=== PATIENT | female | born 1975 | race Caucasian/White ===

== ENCOUNTER 2024-10-04 02:54 | Emergency (ER) | payer BC ==
[2024-10-04 04:05] LABS: Albumin 3.2 g/dL (3.4-5.0); Albumin/Globulin Ratio 1.2 (1.1-1.8); Alkaline Phosphatase 96 U/L (45-117); BUN Blood Urea Nitrogen 10 mg/dL (7-18); Bicarbonate 21 mEq/L (21-32); Bilirubin Total 0.6 mg/dL (0.2-1.0); Globulin 2.7 g/dL (2.3-3.5); Glomerular Filtration Rate 98 ml/min (=/>90); Glucose Level 127 mg/dL (74-106); Magnesium 2.1 mg/dL (1.6-2.4); Protein, Total 5.9 g/dL (6.4-8.2); Sodium Level 143 mEq/L (136-145)
[2024-10-04 04:19] LABS: ALT/SGPT < 14 U/L (13-56); AST/SGOT < 10 U/L (15-37)
--- NOTE | 2024-10-04 05:36 | ER ---
Nurse's Notes [facility] Name: Jael Mesa Age: 49 yrs Sex: Female : 1975 Arrival Date: 10/04/2024 Time: 02:54 Bed 2 Private MD: Diagnosis: Accidental overdose of Seroquel Presentation: 10/04 03:02 Chief complaint: Patient states: Patient arrives via EMS with complaints of feeling SOB jr13 and drowsy upon waking up. Patient took 1600mg of Seroquel around 2330. She stated she forgot she took 2 initial pills (800mg) of seroquel then took another 800mg 20 min after. Patient denies SI or HI. AOx4. GCS 15. Patient received 500ml of NS bolus. Patient states shes always tachycardic and is usually soft on her BP. Coronavirus screen: Client denies travel out of the [place] in the last 14 days. Ebola Screen: No symptoms or risks identified at this time. Initial Sepsis Screen: Does the patient meet any 2 criteria? No. Patient's initial sepsis screen is negative. Does the patient have a suspected source of infection? No. Patient's initial sepsis screen is negative. 03:02 Method Of Arrival: EMS: [facility] jr13 03:02 Risk Assessment: Do you want to hurt yourself or someone else? Patient reports no 13 desire to harm self or others. Onset of symptoms was October 03, 2024 at 23:30. 03:02 Acuity: ANDRÉS 3 jr13 Triage Assessment: 03:00 Neuro: Level of Consciousness is awake, alert, obeys commands, Oriented to person, jr13 place, time, situation, Appropriate for age Reports dizziness. Cardiovascular: Capillary refill < 3 seconds Rhythm is sinus tachycardia. Respiratory: Airway is patent Respiratory effort is even, unlabored, Respiratory pattern is regular, symmetrical. GI: No signs and/or symptoms were reported involving the gastrointestinal system. : No signs and/or symptoms were reported regarding the genitourinary system. Musculoskeletal: Circulation, motion, and sensation intact. Range of motion: intact in all extremities. 03:17 General: Appears uncomfortable, Behavior is cooperative, anxious. Pain: Denies pain. 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 - Infectious Disease History:: Denies. - Social history:: Smoking status: unknown. - Family history:: not pertinent. Screenin:23 [facility] ED Fall Risk Assessment (Adult) History of falling in the last 3 months, jr13 including since admission No falls in past 3 months (0 pts) Confusion or Disorientation No (0 pts) Intoxicated or Sedated No (0 pts) Impaired Gait No (0 pts) Mobility Assist Device Used No (0 pt) Altered Elimination No (0 pt) Score/Fall Risk Level 0 - 2 = Low Risk. [facility] ED Fall Risk Assessment (Adult) Score/Fall Risk Level 0 - 2 = Low Risk Oriented to surroundings, Maintained a safe environment, Educated pt \T\ family on fall prevention, incl call for assistance when getting out of bed. Abuse screen: Denies threats or abuse. Denies injuries from another. Nutritional screening: No deficits noted. Tuberculosis screening: No symptoms or risk factors identified. Assessment: 03:20 Reassessment: CONTACTED POISON CONTROL #[id number]. RECOMMENDATIONS REPEAT EKG IN TWO ha1 HOURS. QTC HAS TO BE LESS THAN 500. CHECK ELECTROLYTES. ADMINISTER POTASSIUM IF POTASSIUM LEVELS ARE LESS MADHAVI 4 AND IF QTC INCREASES. ALSO GIVE MAGNESIUM IF MAGNESIUM LEVELS ARE LESS THAN [address]. NOTIFIED DR[address] DANIELS. 03:25 General: See triage assessment.. jr13 04:30 Reassessment: Patient and/or family updated on plan of care and expected duration. Pain jr13 level reassessed. Patient is alert, oriented x 3, equal unlabored respirations, skin warm/dry/pink. Patient denies pain at this time. Patient states feeling better. Patient states symptoms have improved. Vital Signs: 03:02 BP 104 / 66; Pulse 104; Resp 17; Temp 97.7(O); Pulse Ox 100% on R/A; jr13 03:21 Weight 68.95 kg; Height 5 ft. 4 in. ; jr13 03:59 BP 100 / 59; Pulse 111; Resp 23; Pulse Ox 100% ; br2 05:25 BP 112 / 71; Pulse 95; Resp 15; Pulse Ox 97% on R/A; br2 03:21 Body Mass Index 26.09 (68.95 kg, 162.56 cm) jr13 ED Course: 02:57 Patient arrived in ED. ha1 03:01 EKG done, by greenhouse technician. ha1 03:02 Arin Bean, RN is Primary Nurse. jr13 03:04 Anthony Daniels MD is Attending Physician. rt 03:15 Triage completed. jr13 03:21 Arm band placed on right wrist. jr13 03:23 Maintain EMS IV. Dressing intact. Good blood return noted. Site clean \T\ dry. Gauge \T\ jr 13 site: 18 Right AC. Flushed with 10 mL NS. 03:23 Patient has correct armband on for positive identification. Bed in low position. Call jr13 light in reach. Side rails up X2. Provided Education on: Plan of care. 03:32 CMP Sent. jr13 03:33 Magnesium Sent. jr13 Administered Medications: No medications were administered Outcome: 05:35 Discharge ordered by MD. rt 06:01 Patient left the ED. jr13 Signatures: Tammi Cervantes RN RN ha1 Anthony Daniels MD MD rt Tanya De Anda RN RN br2 Arin Bean, RN RN jr13 Corrections: (The following items were deleted from the chart) 03:21 03:17 General: Appears uncomfortable, Behavior is cooperative, anxious, jr13 jr13
--- NOTE | 2024-10-04 05:36 | EDPHYS ---
Physician Documentation [facility] Name: Jael Mesa Age: 49 yrs Sex: Female : 1975 Arrival Date: 10/04/2024 Time: 02:54 Bed 2 Private MD: ED Physician Anthony Lopez HPI: 10/04 03:52 This 49 yrs old Female presents to ER via EMS with complaints of Seroquel overdose. rt 03:52 Patient takes 800 mg of Seroquel at nighttime for bipolar disorder. She inadvertently rt took her 90 medications twice. She states that she feels "drunk" but denies other acute complaints. The patient states that this was an accident, denies SI. Denies other acute complaints at this time, symptoms are moderate severity, no other aggravating or alleviating factors.. 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 - Infectious Disease History:: Denies. - Social history:: Smoking status: unknown. - Family history:: not pertinent. ROS: 03:52 Constitutional: Negative for fever, chills, and weight loss, Cardiovascular: Negative rt for chest pain, palpitations, and edema, Respiratory: Negative for shortness of breath, cough, wheezing, and pleuritic chest pain, Abdomen/GI: Negative for abdominal pain, nausea, vomiting, diarrhea, and constipation, Skin: Negative for injury, rash, and discoloration, Neuro: Negative for headache, weakness, numbness, tingling, and seizure, Exam: 03:52 Constitutional: This is a well developed, well nourished patient who is awake, alert, rt and in no acute distress. Head/Face: Normocephalic, atraumatic. Chest/axilla: Normal chest wall appearance and motion. Nontender with no deformity. No lesions are appreciated. Cardiovascular: Regular rate and rhythm with a normal S1 and S2. No gallops, murmurs, or rubs. Normal PMI, no JVD. No pulse deficits. Respiratory: Lungs have equal breath sounds bilaterally, clear to auscultation and percussion. No rales, rhonchi or wheezes noted. No increased work of breathing, no retractions or nasal flaring. Skin: Warm, dry with normal turgor. Normal color with no rashes, no lesions, and no evidence of cellulitis. MS/ Extremity: Pulses equal, no cyanosis. Neurovascular intact. Full, normal range of motion. 04:02 ECG was reviewed by the Attending Physician. rt 05:39 ECG was reviewed by the Attending Physician. rt Vital Signs: 03:02 BP 104 / 66; Pulse 104; Resp 17; Temp 97.7(O); Pulse Ox 100% on R/A; jr13 03:21 Weight 68.95 kg; Height 5 ft. 4 in. ; jr13 03:59 BP 100 / 59; Pulse 111; Resp 23; Pulse Ox 100% ; br2 05:25 BP 112 / 71; Pulse 95; Resp 15; Pulse Ox 97% on R/A; br2 03:21 Body Mass Index 26.09 (68.95 kg, 162.56 cm) jr13 MDM: 03:04 Medical Screening Exam initiated rt 05:36 Differential diagnosis: Accidental overdose. Data reviewed: vital signs, nurses notes, rt lab test result(s), EKG. Care significantly affected by the following chronic conditions: Bipolar disorder. Counseling: I had a detailed discussion with the patient and/or guardian regarding the historical points, exam findings, and any diagnostic results supporting the discharge/admit diagnosis, lab results, the need for outpatient follow up, to return to the emergency department if symptoms worsen or persist or if there are any questions or concerns that arise at home. Response to treatment: the patient's symptoms have markedly improved after treatment. 10/04 03:22 Order name: CMP; Complete Time: 04:21 rt 10/04 03:22 Order name: Magnesium; Complete Time: 04: rt 10/04 05:02 Order name: EKG; Complete Time: : rt 10/04 03:22 Order name: EKG - Nurse/Tech; Complete Time: :27 rt EC:02 Rate is 105 beats/min. Rhythm is regular, Sinus tachycardia with No ectopy. QRS [place] is rt Normal. [place] interval is normal. QRS interval is normal. QT interval is prolonged at 510 msec. No Q waves. T waves are Normal. No ST changes noted. Interpreted by me. 05:39 Rate is 101 beats/min. Rhythm is regular, Sinus tachycardia with No ectopy. Right axis rt deviation noted. OH interval is normal. QRS interval is normal. QT interval is normal at 456 msec. No Q waves. T waves are Normal. No ST changes noted. Interpreted by me. Administered Medications: No medications were administered Disposition Summary: 10/04/24 05:35 Discharge Ordered Notes: Location: Home rt Problem: new rt Symptoms: have improved rt Condition: Stable rt Diagnosis - Accidental overdose of Seroquel rt Followup: rt - With: Private Physician - When: 2 - 3 days - Reason: Discharge Instructions: - Discharge Summary Sheet rt - Accidental Drug Poisoning, Adult rt Forms: - Medication Reconciliation Form rt - Antibiotic Education rt - Prescription Opioid Use rt - Patient Portal Instructions rt - Leadership Thank You Letter rt Signatures: Dispatcher [employer] EDMS Anthony Lopez MD MD rt Arin Bean RN RN jr13 Corrections: (The following items were deleted from the chart) 03:23 03:23 COMPREHENSIVE METABOLIC PANEL+C.LAB.BRZ ordered. EDMS EDMS 03:23 03:23 MAGNESIUM+C.LAB.BRZ ordered. EDMS EDMS
[2024-10-04 06:27] VITALS: BP 112/71; TEMP 97.7; O2SAT 97
--- NOTE | 2024-10-04 13:19 | EKG ---
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
--- NOTE | 2024-10-04 13:19 | EKG ---
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
== END 2024-10-04 06:01 | disposition home or self-care (01) ==
LOC: ER 02:54
DX: T43.591A Poisoning by other antipsychotics and neuroleptics, accidental (unintentional), initial encounter (principal); F31.9 Bipolar disorder, unspecified
CPT/HCPCS: 36415; 80053; 83735; 93005; 99283